=== PATIENT | male | born 1960 | race Caucasian/White ===

== ENCOUNTER → 2019-11-30 09:55 | Outpatient (BNVA) | payer OTHER, SELFPAY | PROVIDERS: Family Provider Family Medicine; PCP Family Medicine; Visit Provider Specialist | DX: M25.552 Pain in left hip (principal) | CPT/HCPCS: 73502 ==

== ENCOUNTER → 2020-01-08 09:27 | Outpatient (BNVA) | payer OTHER, SELFPAY | PROVIDERS: Family Provider Family Medicine; PCP Emergency Medicine Emergency Medical Services; Referring Provider Emergency Medicine Emergency Medical Services; Visit Provider Anesthesiology Pain Medicine | DX: M51.16 Intervertebral disc disorders with radiculopathy, lumbar region (principal); M47.816 Spondylosis without myelopathy or radiculopathy, lumbar region; M54.9 Dorsalgia, unspecified; M16.0 Bilateral primary osteoarthritis of hip; Z79.891 Long term (current) use of opiate analgesic | CPT/HCPCS: 99205; 99215 ==

== ENCOUNTER → 2020-01-19 14:26 | Outpatient (BNVA) | payer OTHER, SELFPAY | PROVIDERS: Family Provider Family Medicine; PCP Emergency Medicine Emergency Medical Services; Visit Provider Anesthesiology Pain Medicine | DX: M51.16 Intervertebral disc disorders with radiculopathy, lumbar region (principal); M47.816 Spondylosis without myelopathy or radiculopathy, lumbar region; M54.9 Dorsalgia, unspecified; M16.0 Bilateral primary osteoarthritis of hip | CPT/HCPCS: 64483; 64484; 99212; J1100; J3490 ==

== ENCOUNTER → 2020-02-04 13:03 | Outpatient (BNVA) | payer OTHER, SELFPAY | PROVIDERS: Family Provider Family Medicine; PCP Emergency Medicine Emergency Medical Services; Visit Provider Anesthesiology Pain Medicine | DX: M51.16 Intervertebral disc disorders with radiculopathy, lumbar region (principal); M47.816 Spondylosis without myelopathy or radiculopathy, lumbar region; M16.11 Unilateral primary osteoarthritis, right hip; M16.12 Unilateral primary osteoarthritis, left hip; M54.9 Dorsalgia, unspecified | CPT/HCPCS: 99214 ==

== ENCOUNTER → 2020-03-07 13:04 | Outpatient (BNVA) | payer OTHER, SELFPAY | PROVIDERS: Family Provider Family Medicine; PCP Emergency Medicine Emergency Medical Services; Visit Provider Anesthesiology Pain Medicine | DX: M47.816 Spondylosis without myelopathy or radiculopathy, lumbar region (principal); M51.16 Intervertebral disc disorders with radiculopathy, lumbar region; M16.11 Unilateral primary osteoarthritis, right hip; M54.9 Dorsalgia, unspecified; Z79.891 Long term (current) use of opiate analgesic | CPT/HCPCS: 64635; 64636; J1030 ==

== ENCOUNTER → 2020-03-23 10:26 | Outpatient (BNVA) | payer OTHER, SELFPAY | PROVIDERS: Family Provider Family Medicine; PCP Emergency Medicine Emergency Medical Services; Visit Provider Anesthesiology Pain Medicine | DX: M51.16 Intervertebral disc disorders with radiculopathy, lumbar region (principal); M47.816 Spondylosis without myelopathy or radiculopathy, lumbar region; M16.0 Bilateral primary osteoarthritis of hip; M54.9 Dorsalgia, unspecified; Z79.891 Long term (current) use of opiate analgesic | CPT/HCPCS: 99214 ==

== ENCOUNTER → 2020-04-13 14:05 | Outpatient (BNVA) | payer OTHER, SELFPAY | PROVIDERS: Family Provider Family Medicine; PCP Emergency Medicine Emergency Medical Services; Visit Provider Anesthesiology Pain Medicine | DX: M47.816 Spondylosis without myelopathy or radiculopathy, lumbar region (principal); M54.9 Dorsalgia, unspecified; Z79.891 Long term (current) use of opiate analgesic | CPT/HCPCS: 64635; 64636; J1030 ==

== ENCOUNTER → 2021-08-02 07:58 | Outpatient (BNVA) | payer OTHER, SELFPAY | PROVIDERS: Family Provider Family Medicine; PCP Emergency Medicine Emergency Medical Services; Visit Provider Surgery | DX: Z12.11 Encounter for screening for malignant neoplasm of colon (principal); Z86.010 Personal history of colon polyps | CPT/HCPCS: 99203 ==

== ENCOUNTER 2021-08-23 05:50 | Day surgery (SDC) | payer OTHER, SELFPAY ==
[2021-08-22 08:00] VITALS: BMI 33.9
[2021-08-23 06:10] VITALS: BP 145/107; PULSE 118; RESP 18; TEMP 35.7; O2SAT 97
[2021-08-23] MEDS: sodium chloride 0.9% 1,000 ML 30 ML IV (06:17)
--- NOTE | 2021-08-23 06:52 | W.PM.OPSUD ---
Surgery/Procedure H&P Update DATE OF PROCEDURE: August 23, 2021 DATE H&P PERFORMED: 08/02/21 CHANGES TO PREVIOUS DOCUMENTATION: none PLANNED PROCEDURE: Operation Date: 08/23/21 07:00 Proposed Procedures p Colonoscopy(Not Applicable) - Kiran Keller DO
--- NOTE | 2021-08-23 06:55 | ANES.PREANE2 ---
Pre-Anesthetic Assessment Height/Weight: Height 1.79 m Weight 108.862 kg Temp Pulse Resp BP Pulse Ox 96.2 F L 118 H 18 145/107 97 08/23/21 06:10 08/23/21 06:10 08/23/21 06:10 08/23/21 06:10 08/23/21 06:10 Preop Diagnosis: screening Operation Date: 08/23/21 07:00 Proposed Procedures p Colonoscopy(Not Applicable) - Kiran Keller DO Familial anesthetic complications: none Was Beta Kary taken within 24 hours: N/A Was Clonidine taken within 24 hours: N/A Last intake: Intake Last Liquid Date 08/23/21 Last Liquid Time 03:00 Last Solid Date 08/21/21 Social No alcohol and No tobacco previous alcohol abuse and smoking- quit 13 years ago Exam alert and oriented x 3 Airway Submandibular: within normal limits Cervical ROM: within normal limits Mallampati: Class II Dentition: other (missing mulitple) History/ROS No significant history except as noted Pulmonary None reported CV/HEM Hypertension None reported Hepatic None reported GI Gastroesophageal Reflux Disease Metabolic Diabetes Mellitus [facility] [place] None reported Neuropsych None reported Anesthetic Plan ASA status: 3 Anesthesia: Anesthesia Evaluation and MAC Risk of > 500 ml blood loss (7ml/kg in children): No Medications/Allergies Home Medications Medication Instructions Recorded Confirmed Last Taken Type lisinopril 40 mg tablet 40 mg PO DAILY 11/30/19 08/23/21 08/21/21 History metformin 500 mg tablet 1,000 mg PO BID 11/30/19 08/23/21 08/21/21 History naproxen 500 mg tablet 500 mg PO BID PRN 11/30/19 08/23/21 08/22/21 History aspirin 81 mg tablet,delayed 81 mg PO DAILY 01/08/20 08/23/21 08/21/21 History release insulin glargine 100 unit/mL (3 35 unit SUBCUT BID 08/22/21 08/23/21 08/21/21 History mL) subcutaneous pen (Lantus Solostar U-100 Insulin) ipratropium 20 mcg-albuterol 100 1 puff INHALATION DAILY PRN 08/22/21 08/23/21 Unknown History mcg/actuation mist for inhalation (Combivent Respimat) sildenafil 100 mg tablet 100 mg PO PRN PRN 08/22/21 08/23/21 08/21/21 History Allergies Allergy/AdvReac Type Severity Reaction Status Date / Time Penicillins Allergy rash/hives Verified 08/23/21 06:07 Current Medications Generic Name Dose Route Start Last Admin Trade Name Freq PRN Reason Stop Dose Admin Sodium Chloride 1,000 mls @ 30 mls/hr 08/23/21 06:00 08/23/21 06:17 Sodium Chloride 0.9% IV 08/24/21 05:59 30 mls/hr .Q24H OMAR Administration PFSH Anesthesia Medical History Anxiety High cholesterol Hypertension Opioid contract exists Primary osteoarthritis of left hip Primary osteoarthritis of right hip Type 2 diabetes mellitus Surgical History History of colonoscopy Family History Denies family history of Anesthesia complication Social History Smoking and tobacco status: former smoker (12 years ago) Alcohol intake: never History of recent travel: No Data Anesthesia Cardiac Studies: No Data to Display
[2021-08-23 07:17] VITALS: BP 174/84; PULSE 108; RESP 22; TEMP 36.1; O2SAT 93
--- NOTE | 2021-08-23 07:24 | ANE.PACU2 ---
Inpatient post-anesthesia follow up: Airway intact: Yes Vital signs: Temperature 97 F Pulse Rate 108 Respiratory Rate 22 Blood Pressure 174/84 Pulse Oximetry 93 Oxygen Delivery Me thod Nasal Cannula Oxygen Flow Rate Fraction of Inspir ed Oxygen Hydration adequate: Yes Nausea and vomiting: No Pain level: 1 Mental status: Baseline
[2021-08-23 07:40] VITALS: BP 108/84; PULSE 110; RESP 18; O2SAT 98
--- NOTE | 2021-08-23 08:03 | PC.NURSE ---
patient was taken to his truck to get his phone to call his ride. person did not answer. pt taken back to gi lab to wait for ride. message left for equipment driver to call to get directions to gi lab.
--- NOTE | 2021-08-23 10:56 | PC.NURSE ---
pt has cont. to wait on ride sitting in waiting room . went to check on pt and he was not in waiting room. pt left his keys at the nurses station. i had finally got a hold of his rolloff truck driver quin canales. states he would come get pt but it would be about 45 min. security notified.
--- NOTE | 2021-08-23 11:29 | PC.NURSE ---
pt electric pile driver operator here to get pt. his electric pile driver operator took the pt keys and both walked out.
== END 2021-08-23 11:29 | disposition home or self-care (01) ==
PROVIDERS: Family Provider Family Medicine; PCP Family Medicine; Visit Provider Surgery
PROC: 0DJD8ZZ Inspection of Lower Intestinal Tract, Via Natural or Artificial Opening Endoscopic (ICD-10-PCS; CPT 45378; principal; 2021-08-23 07:00)
DX: Z12.11 Encounter for screening for malignant neoplasm of colon (principal); Z79.82 Long term (current) use of aspirin; F41.9 Anxiety disorder, unspecified; I10 Essential (primary) hypertension; E11.9 Type 2 diabetes mellitus without complications; Z87.891 Personal history of nicotine dependence; Z86.010 Personal history of colon polyps; K21.9 Gastro-esophageal reflux disease without esophagitis; Z79.84 Long term (current) use of oral hypoglycemic drugs
CPT/HCPCS: 45378; J2704; J7030

== ENCOUNTER 2021-10-29 08:47 | Emergency (ER) | payer OTHER, SELFPAY ==
[2021-10-29 08:49] VITALS: BP 168/100; PULSE 91; RESP 16; TEMP 36.4; O2SAT 98
[2021-10-29 08:59] VITALS: BP 169/100; PULSE 90; RESP 16; TEMP 36.4; O2SAT 98
--- NOTE | 2021-10-29 09:00 | W.ED.EXTPRO ---
HPI - Extremity Problem General: Chief complaint: Extremity Injury, Lower Stated complaint: Left leg pain with tingling Time Seen by Provider: 10/29/21 08:55 History of Present Illness: 61-year-old male presents with chronic left leg pain and Sciatica . Patient reports no new injuries and no significant changes pain. Patient denies any problems with bowel or bladder, lower extremity weakness or any other neurologic complaints. Patient reports he had an injury in 1977. That 1 time he was seen in a painter decorator but has not seen in 2 years. Patient presents today because he just wants to know what he needs to do. Patient's been taken naproxen and Tylenol for the pain. Patient has not followed up in quite a while for his chronic pain. Patient has no fevers, chills or other systemic complaints. Associated symptoms: Deny fever(s) or rash Review of Systems Const: Denies: fever(s) or chills Eyes: Denies: change in vision ENMT: Denies: throat pain or ear or mastoid pain Resp: Denies: dyspnea or productive cough : Denies: flank pain or difficulty urinating Musc: Reports: back pain, extremity pain and other (Please see HPI) Skin/Breast: Denies: rash or erythema PFSH ED PFSH: Medical History Anxiety High cholesterol Hypertension Opioid contract exists Primary osteoarthritis of left hip Primary osteoarthritis of right hip Type 2 diabetes mellitus Surgical History History of colonoscopy Family History Denies family history of Anesthesia complication Social History Smoking and tobacco status: former smoker (12 years ago) Alcohol intake: never History of recent travel: No Physical Exam Const: COMMON NORMALS: no acute distress, patient oriented x3 and no limitations Neck/C-Spine: COMMON NORMALS: no JVD Resp: COMMON NORMALS: normal respiratory effort, No use of accessory muscles and clear to auscultation bilaterally AUSCULTATION: clear to auscultation bilaterally Cardio: COMMON NORMALS: no JVD and regular rate RATE: regular rate : COMMON NORMALS: Yes no CVA tenderness BLADDER/KIDNEY EXAM: Yes no CVA tenderness Back/Pelvis: COMMON NORMALS: no CVA tenderness, thoraco-lumbar ROM normal and straight leg raise negative bilaterally Extremity: COMMON NORMALS: normal to inspection, full ROM and capillary refill normal Neuro: COMMON NORMALS: patient oriented x3, CN's II-XII intact bilaterally and moves all extremities Psych: COMMON NORMALS: mental status grossly normal, Normal thought process present and cooperative THOUGHT PROCESS: Normal thought process present Skin: COMMON NORMALS: no rashes or lesions noted GENERAL SKIN EXAM: no rashes or lesions noted Course Vital Signs: Vital signs: Vital Signs Temperature 97.6 F 10/29/21 08:49 Pulse Rate 91 10/29/21 08:49 Respiratory Rate 16 10/29/21 08:49 Blood Pressure 168/100 10/29/21 08:49 Pulse Oximetry 98 10/29/21 08:49 Oxygen Delivery Me thod 10/29/21 08:49 MDM - Extremity (Nontraumatic) Medical Decision Making Patient with chronic low back pain and sciatica. Discussed with patient that he will need to follow-up with his primary care provider recommend he see rehabilitation construction specialist along with reestablish care with pain specialist. Patient will be given a Norflex shot here. I will recommend he uses topical lidocaine and Voltaren cream. Patient stable and discharged home Discharge Plan Discharge Patient Disposition: Home Clinical Impression: Low back pain of thoracolumbar region with sciatica Condition: Stable Prescriptions: No Action lisinopril 40 mg tablet 40 mg PO DAILY metformin 500 mg tablet 1,000 mg PO BID naproxen 500 mg tablet 500 mg PO BID PRN (Reason: Pain) aspirin 81 mg tablet,delayed release (DR/EC) 81 mg PO DAILY sildenafil 100 mg tablet 100 mg PO PRN PRN (Reason: Sexual Activity) insulin glargine [Lantus Solostar U-100 Insulin] 100 unit/mL (3 mL) insulin pen 35 unit SUBCUT BID Combivent Respimat 20-100 mcg/actuation mist 1 puff INHALATION DAILY PRN (Reason: ALLERGIES) Discharge Orders: Discharge ED (Routine); Ordered 10/29/21 Ordered By: Fady Mccall Referrals: Lissett Olivera MD [Primary Care Provider] - Discharge Diet: Advance as tolerated and Usual diet Discharge Activity: Resume usual activity Patient Instructions: Opioid Safety Activity Restrictions/Additional Instructions: Please use 4% topical lidocaine with menthol, cream gel or patch use as directed on package as needed for pain Diclofenac/Voltaren cream to low back, use as directed on package Warm moist heat for 20 minutes at a time 3-4 times daily Please follow-up with rehabilitation construction specialist and pain specialist of your choice Consider physical therapy and massage therapy. Please discuss these with your primary care provider Coding Level of Care Code ED Weight Trainer for Chg Fwd Exam Comprehensive
[2021-10-29 09:19] VITALS: PULSE 78
[2021-10-29 09:29] VITALS: BP 169/100; PULSE 90; RESP 16; TEMP 36.4; O2SAT 98
[2021-10-29] MEDS: orphenadrine 30 mg/mL Inj 2 mL 60 MG IM (09:32)
== END 2021-10-29 09:31 | disposition home or self-care (01) ==
PROVIDERS: Emergency Provider Student in an Organized Health Care Education/Training Program; PCP Family Medicine
DX: M54.42 Lumbago with sciatica, left side (principal)
CPT/HCPCS: 96372; 99284; J2360

== ENCOUNTER 2021-10-30 07:23 | Emergency (ER) | payer OTHER, SELFPAY ==
[2021-10-30 07:34] VITALS: BP 172/106; PULSE 86; RESP 21; TEMP 36.6; O2SAT 98; BMI 35.9
--- NOTE | 2021-10-30 08:22 | ED_ITS ---
HPI - Back Pain/Injury General: Chief Complaint: Back Pain/Injury Stated Complaint: Left leg pain traveling up spine Time Seen by Provider: 10/30/21 07:51 History of Present Illness: Patient is a 61-year-old male comes to the ED with chronic lower back pain with sciatica. Patient says he has been dealing with this for several years now. He was a patient of Dr. De La Cruz with pain management clinic approximately 2 years ago. He is a and [facility] has had trouble getting things set up to further manage his chronic sciatica. Today he endorses having lower back pain that radiates down into his left leg. Patient was seen here in the ED for same complaint yesterday and October 29 and he was given muscle relaxer shop and discharged home. Denies any bladder or bowel incontinence, pelvic anesthesia or any weakness to lower extremities. Associated symptoms: Deny abdominal pain, chills, dysuria, fatigue, fever(s), hematuria, nausea or vomiting Review of Systems Const: Denies: fever(s), chills or fatigue Eyes: Denies: change in vision or eye discomfort ENMT: Denies: throat pain, odynophagia, nasal discharge or nasal congestion Card: Denies: chest pain, palpitations, edema, swelling of feet/ankles, dyspnea on exertion or orthopnea Resp: Denies: dyspnea, productive cough or non-productive cough GI: Denies: abdominal pain, nausea, vomiting, diarrhea, constipation or samreen tochezia : Denies: flank pain, difficulty urinating, dysuria or hematuria Musc: Reports: back pain; Denies: neck pain or extremity swelling Skin/Breast: Denies: rash or new lesions Neuro: Denies: headache(s), numbness in extremities or weakness in extremities [facility] ED PFSH: Medical History Anxiety High cholesterol Hypertension Opioid contract exists Primary osteoarthritis of left hip Primary osteoarthritis of right hip Type 2 diabetes mellitus Surgical History History of colonoscopy Family History Denies family history of Anesthesia complication Social History Smoking and tobacco status: former smoker (12 years ago) Alcohol intake: never History of recent travel: No Physical Exam Const: COMMON NORMALS: no acute distress, patient oriented x3 and alert GENERAL APPEARANCE: cooperative HENMT: COMMON NORMALS: normocephalic HEAD & SCALP: normocephalic MOUTH: Normal oral and palatal mucosa present THROAT: posterior oropharynx normal and uvula midline Neck/C-Spine: COMMON NORMALS: supple GENERAL: Yes normal visual inspection Resp: COMMON NORMALS: normal respiratory effort, No retractions, No use of accessory muscles and clear to auscultation bilaterally AUSCULTATION: clear to auscultation bilaterally Cardio: COMMON NORMALS: regular rate, regular rhythm, S1 normal heart sound present, S2 normal heart sound present, No gallops present (Cardio), No clicks present (Cardio), No murmurs present (Cardio) and Peripheral pulses 2+ throughout RATE: regular rate RHYTHM: regular rhythm HEART SOUNDS: S1 normal heart sound present and S2 normal heart sound present PERIPHERAL PULSES: Peripheral pulses 2+ throughout GI: COMMON NORMALS: Normal to inspection, nondistended, normoactive bowel sounds present, Soft to palpation, non-tender and no masses PALPATION: Yes Soft to palpation : COMMON NORMALS: Yes no CVA tenderness BLADDER/KIDNEY EXAM: Yes no CVA tenderness Back/Pelvis: COMMON NORMALS: no CVA tenderness LUMBAR SPINE/LOWER BACK: Yes paraspinal muscle tenderness Lumbar paraspinal muscle tenderness: left Extremity: COMMON NORMALS: normal to inspection Neuro: COMMON NORMALS: patient oriented x3 SENSORIUM/ORIENTATION: Yes alert GAIT: Yes Normal gait present Skin: GENERAL SKIN EXAM: dry skin Course Vital Signs: Vital signs: Vital Signs Temperature 97.9 F 10/30/21 07:34 Pulse Rate 88 10/30/21 09:14 Respiratory Rate 14 10/30/21 09:14 Blood Pressure 175/78 10/30/21 09:14 Pulse Oximetry 98 10/30/21 09:14 Oxygen Delivery Me thod 10/30/21 07:34 MDM - Back Pain/Injury Medical Decision Making Patient is a 61-year-old male that comes to the ED with chronic lumbar back pain with pain rating down left leg. Patient did see pain management clinic 2 years ago for back pain but has not been there for a while and is currently trying to get the [facility] to set him back up with pain management. Denies any cauda equina symptoms. Vitals are stable. Patient appears nontoxic and in no acute distress. Rest of exam is benign. Patient was given a dose of Toradol, Solu- Medrol and Norflex here in the ED and his symptoms improved. Patient was diagnosed with chronic lumbar radiculopathy and was discharged home with a prescription for Celebrex, muscle relaxer and steroid. Patient was told to monitor blood sugars closely while taking prednisone. Return to ED precautions given. [facility] to [facility] with [facility]. Patient understood and agreed with plan. Discharge Plan Discharge Patient Disposition: Home Clinical Impression: Chronic lumbar radiculopathy Condition: Stable Prescriptions: New Celebrex 100 mg capsule 100 mg PO BID PRN (Reason: pain) Qty: 30 0RF prednisone 20 mg tablet 20 mg PO BID 5 Days Qty: 10 0RF methocarbamol 750 mg tablet 750 mg PO Q8H PRN (Reason: Back muscle spasms and pain) Qty: 30 0RF No Action lisinopril 40 mg tablet 40 mg PO DAILY metformin 500 mg tablet 1,000 mg PO BID naproxen 500 mg tablet 500 mg PO BID PRN (Reason: Pain) aspirin 81 mg tablet,delayed release (DR/EC) 81 mg PO DAILY sildenafil 100 mg tablet 100 mg PO PRN PRN (Reason: Sexual Activity) insulin glargine [Lantus Solostar U-100 Insulin] 100 unit/mL (3 mL) insulin pen 35 unit SUBCUT BID Combivent Respimat 20-100 mcg/actuation mist 1 puff INHALATION DAILY PRN (Reason: ALLERGIES) Discharge Orders: Discharge ED (Routine); Ordered 10/30/21 Ordered By: Alban Gonzalez Referrals: Lissett Olivera MD [Primary Care Provider] - Discharge Diet: Diabetic Discharge Activity: Increase activity as tolerated Patient Instructions: Lumbar Radiculopathy (ED) Activity Restrictions/Additional Instructions: Follow-up with medical provider as directed in the next 5 to 7 days for reevaluation. I am sending you home with a prescription for prednisone and you can start taking prednisone tomorrow, since you got a steroid shot today. Prednisone is a steroid and can increase your blood sugars so we will monitor blood sugars closely while taking medication. If blood sugars are getting too elevated and difficult to manage stop taking prednisone. Take medications as prescribed. Return to the ER or your medical provider if condition worsens. Please read and understand discharge instructions. Thank you for choosing [facility] for your healthcare needs today. Please realize this is an emergency room and that we are providing you with a medical screening exam and this may not be complete and all inclusive of all the testing and or work up that you may need to determine your ailment or severity of your illness. It is very important that you follow up as instructed or that you return to the Emergency Department should you have concerns or if your condition changes or worsens in any way. Coding Level of Care Code ED Cash Register Balancer for Sean Fwd Exam Comprehensive
[2021-10-30] MEDS: orphenadrine 30 mg/mL Inj 2 mL 60 MG IM (08:37)
[2021-10-30] MEDS: ketorolac 60 mg/2 mL INJ IM (08:37)
[2021-10-30 09:14] VITALS: BP 175/78; PULSE 88; RESP 14; O2SAT 98
== END 2021-10-30 09:15 | disposition home or self-care (01) ==
PROVIDERS: Emergency Provider Physician Assistant; PCP Family Medicine
DX: M54.16 Radiculopathy, lumbar region (principal); Z79.82 Long term (current) use of aspirin; Z79.4 Long term (current) use of insulin; I10 Essential (primary) hypertension; E11.9 Type 2 diabetes mellitus without complications; Z87.891 Personal history of nicotine dependence
CPT/HCPCS: 96372; 99284; J1885; J2360; J2930

== ENCOUNTER → 2021-11-02 08:59 | Outpatient (BNVA) | payer OTHER, SELFPAY | PROVIDERS: PCP Family Medicine; Visit Provider Anesthesiology Pain Medicine | DX: M47.816 Spondylosis without myelopathy or radiculopathy, lumbar region (principal); M51.16 Intervertebral disc disorders with radiculopathy, lumbar region; M16.0 Bilateral primary osteoarthritis of hip; M79.605 Pain in left leg; Z87.891 Personal history of nicotine dependence; Z79.899 Other long term (current) drug therapy | CPT/HCPCS: 99213; 99214 ==

== ENCOUNTER → 2021-11-21 13:34 | Outpatient (BNVA) | payer OTHER, SELFPAY | PROVIDERS: PCP Family Medicine; Visit Provider Anesthesiology Pain Medicine | DX: M54.16 Radiculopathy, lumbar region (principal); Z87.891 Personal history of nicotine dependence | CPT/HCPCS: 64483; 64484; J1100; J3490 ==

== ENCOUNTER 2021-12-05 10:15 | Emergency (ER) | payer OTHER, SELFPAY ==
[2021-12-05 10:55] VITALS: BP 152/101; PULSE 95; RESP 18; TEMP 36.5; O2SAT 97; BMI 34.4
--- NOTE | 2021-12-05 11:19 | W.ED.EXTPRO ---
HPI - Extremity Problem General: Chief complaint: Extremity Injury, Upper Stated complaint: left hip pain Time Seen by Provider: 12/05/21 11:01 History of Present Illness: Patient is a 61-year-old male comes to the ED with acute on chronic back pain. Patient sees pain management clinic and his last appointment was on November 21 and a transforaminal lumbar MICHAEL was performed. The past couple days he is having lower back pain that radiates down to his left leg. Patient says he has an appointment with pain management clinic today at 12:40pm. Associated symptoms: Deny chest pain, fever(s) or rash Review of Systems Const: Denies: fever(s), chills or fatigue Eyes: Denies: change in vision or eye discomfort ENMT: Denies: throat pain, odynophagia, nasal discharge or nasal congestion Card: Denies: chest pain, palpitations, edema, swelling of feet/ankles, dyspnea on exertion or orthopnea Resp: Denies: dyspnea, productive cough or non-productive cough GI: Denies: abdominal pain, nausea, vomiting, diarrhea, constipation or hematochezia : Denies: flank pain, difficulty urinating, dysuria or hematuria Musc: Reports: back pain; Denies: neck pain or extremity swelling Skin/Breast: Denies: rash or new lesions Neuro: Denies: headache(s), numbness in extremities or weakness in extremities PFSH ED PFSH: Medical History Anxiety High cholesterol Hypertension Opioid contract exists Primary osteoarthritis of left hip Primary osteoarthritis of right hip Type 2 diabetes mellitus Surgical History History of colonoscopy Family History Denies family history of Anesthesia complication Social History Smoking and tobacco status: former smoker Second hand smoke exposure: No Alcohol intake: never History of recent travel: No Physical Exam Const: COMMON NORMALS: no acute distress, patient oriented x3 and alert GENERAL APPEARANCE: cooperative and comfortable HENMT: COMMON NORMALS: normocephalic HEAD & SCALP: normocephalic MOUTH: Normal oral and palatal mucosa present THROAT: posterior oropharynx normal and uvula midline Neck/C-Spine: COMMON NORMALS: supple GENERAL: Yes normal visual inspection Resp: COMMON NORMALS: normal respiratory effort, No retractions, No use of accessory muscles and clear to auscultation bilaterally AUSCULTATION: clear to auscultation bilaterally Cardio: COMMON NORMALS: regular rate, regular rhythm, S1 normal heart sound present, S2 normal heart sound present, No gallops present (Cardio), No clicks present (Cardio), No murmurs present (Cardio) and Peripheral pulses 2+ throughout RATE: regular rate RHYTHM: regular rhythm HEART SOUNDS: S1 normal heart sound present and S2 normal heart sound present PERIPHERAL PULSES: Peripheral pulses 2+ throughout GI: COMMON NORMALS: Normal to inspection, nondistended, normoactive bowel sounds present, Soft to palpation, non-tender and no masses PALPATION: Yes Soft to palpation : COMMON NORMALS: Yes no CVA tenderness BLADDER/KIDNEY EXAM: Yes no CVA tenderness Back/Pelvis: COMMON NORMALS: no CVA tenderness Extremity: COMMON NORMALS: normal to inspection Neuro: COMMON NORMALS: patient oriented x3 SENSORIUM/ORIENTATION: Yes alert GAIT: Yes Normal gait present Skin: GENERAL SKIN EXAM: dry skin Course Vital Signs: Vital signs: Vital Signs Temperature 97.7 F 12/05/21 10:55 Pulse Rate 95 12/05/21 10:55 Respiratory Rate 18 12/05/21 10:55 Blood Pressure 152/101 12/05/21 10:55 Pulse Oximetry 97 12/05/21 10:55 Oxygen Delivery Me thod 12/05/21 10:55 MDM - Extremity (Nontraumatic) Medical Decision Making Patient is a 61-year-old male comes to the ED with chronic back pain. Patient sees pain management clinic and his last appointment was on November 21 and a transforaminal lumbar MICHAEL was performed. He was scheduled to have appointment with them today at 1240 but since he showed up here in the ED his appointment was canceled. Denies any new injury. This is patient's normal chronic back pain. Informed patient that it is better for him to go to his pain management appointment to deal with his chronic back pain then to come here to the emergency department. He was given a dose of Toradol and Norflex here in the ED and discharged home. Told to follow-up with pain management. Patient understood and agreed with plan. Discharge Plan Discharge Patient Disposition: Home Clinical Impression: Chronic bilateral low back pain Condition: Stable Prescriptions: No Action lisinopril 40 mg tablet 40 mg PO DAILY metformin 500 mg tablet 1,000 mg PO BID naproxen 500 mg tablet 500 mg PO BID PRN (Reason: Pain) aspirin 81 mg tablet,delayed release (DR/EC) 81 mg PO DAILY dexamethasone sodium phos (PF) 10 mg/mL solution 8 mg Infiltration ONCE Qty: 0.8 0RF methocarbamol 750 mg tablet 750 mg PO Q8H PRN (Reason: Back muscle spasms and pain) Qty: 90 0RF celecoxib [Celebrex] 100 mg capsule 100 mg PO BID PRN (Reason: pain) Qty: 60 0RF methylprednisolone acetate [Depo-Medrol] 40 mg/mL suspension 40 mg Infiltration ONCE Qty: 1 0RF sildenafil 100 mg tablet 100 mg PO PRN PRN (Reason: Sexual Activity) insulin glargine [Lantus Solostar U-100 Insulin] 100 unit/mL (3 mL) insulin pen 35 unit SUBCUT BID Combivent Respimat 20-100 mcg/actuation mist 1 puff INHALATION DAILY PRN (Reason: ALLERGIES) Discharge Orders: Discharge ED (Routine); Ordered 12/05/21 Ordered By: Alban Gonzalez Referrals: Lissett Olivera MD [Primary Care Provider] - Discharge Diet: Regular Discharge Activity: Increase activity as tolerated Patient Instructions: Pain Management Activity Restrictions/Additional Instructions: Follow-up with medical provider as directed. Continue taking all home medications as previously prescribed. Return to the ER or your medical provider if condition worsens. Please read and understand discharge instructions. Thank you for choosing [facility] for your healthcare needs today. Please realize this is an emergency room and that we are providing you with a medical screening exam and this may not be complete and all inclusive of all the testing and or work up that you may need to determine your ailment or severity of your illness. It is very important that you follow up as instructed or that you return to the Emergency Department should you have concerns or if your condition changes or worsens in any way. Coding Level of Care Code ED Real Estate Office Supervisor for Sean [place] Exam Comprehensive
[2021-12-05] MEDS: orphenadrine 30 mg/mL Inj 2 mL 60 MG IM (11:58)
[2021-12-05] MEDS: ketorolac 60 mg/2 mL INJ IM (11:58)
== END 2021-12-05 12:01 | disposition home or self-care (01) ==
PROVIDERS: Emergency Provider Physician Assistant; PCP Family Medicine
DX: G89.29 Other chronic pain (principal); M54.50 Low back pain, unspecified; Z79.82 Long term (current) use of aspirin; Z79.4 Long term (current) use of insulin; I10 Essential (primary) hypertension; E11.9 Type 2 diabetes mellitus without complications; Z87.891 Personal history of nicotine dependence
CPT/HCPCS: 96372; 99284; J1885; J2360

== ENCOUNTER 2021-12-25 10:52 | Outpatient (CLI) | payer OTHER, SELFPAY ==
--- NOTE | 2021-12-25 11:06 | MR_ITS ---
WS: [id number] MRI THORACIC SPINE WITHOUT CONTRAST TECHNIQUE: Sagittal T1, T2 and STIR imaging. Axial T2 imaging. Noncontrast imaging obtained. CLINICAL INFORMATION: ACUTE MID BACK PAIN RADIATING DOWN THE LEGS COMPARISON: None. FINDINGS: Mild thoracic kyphosis. No acute compression. No high-grade central canal narrowing. Mild chronic com pression with anterior wedging at T5. Cord signal is normal. A few tiny disc protrusions the mid thor acic spine at T6-T7 and T7-T8. Moderate facet arthropathy lower thoracic spine. Normal caliber thorac ic aorta. Normal caliber thoracic aorta. Adrenal glands appear normal. T6-T7: Shallow RIGHT pericentral protrusion. Spinal canal and foramen are patent. T7-T8: Shallow RIGHT pericentral protrusion. Slight effacement of ventral thecal sac. Mild RIGHT fora tawnya narrowing. MR/MR thoracic spin wo con* [id number] IMPRESSION: 1. Mild thoracic kyphosis. No acute compression. No high-grade central canal n arrowing. 2. Mild chronic compression with anterior wedging at T5. 3. Shallow disc protrusions at T6-T7 and T7-T8. 4. Moderate facet arthropathy lower thoracic spine.
--- NOTE | 2021-12-25 11:07 | MR_ITS ---
WS: [id number] MRI LUMBAR SPINE NONCONTRAST TECHNIQUE: Sagittal T1, T2 and STIR imaging. Axial T1 and T2 imaging. CLINICAL INFORMATION: ACUTE MID BACK PAIN RADIATING DOWN THE LEGS COMPARISON: None. FINDINGS: Mild lumbar curve. No acute compression. Disc bulging worse at L3-L4, L4-L5, and L5-S1. This is worse L4-L5. L1-L2: Normal. L2-L3: Shallow central disc protrusion. Mild central canal stenosis. Narrowing of the subarticular re cess bilaterally. Mild facet arthropathy. Mild LEFT foraminal narrowing. L3-L4: Mild disc bulging with mild central canal stenosis. Impingement on the traversing L4 nerve leonel ts bilaterally in the subarticular recess. Mild to moderate facet arthropathy. Mild LEFT greater than RIGHT foraminal narrowing. L4-L5: Central disc protrusion with severe central canal stenosis. Moderate facet arthropathy ligamen mally flavum hypertrophy. Impingement traversing L5 nerve roots bilaterally. RIGHT foraminal protrusion with moderate RIGHT foraminal narrowing. LEFT foramen is patent. L5-S1: Mild disc bulging with slight impingement on the LEFT S1 nerve root and subarticular recess. M oderate facet arthropathy. Small bilateral foraminal protrusions with moderate RIGHT and mild LEFT fo raminal narrowing. Visualized pelvic bony structures: Normal. Paravertebral soft tissues: Normal. MR/MR lumbar spine wo con* [id number] IMPRESSION: 1. Mild lumbar curve. No acute compression. 2. Severe central canal stenosis L4-L5 with impingement traversing L5 nerve ro ots bilaterally. 3. Mild central canal stenosis L2-L3 and L3-L4. 4. Disc bulging L5-S1 slightly impinges the traversing LEFT S1 nerve root. 5. Moderate foraminal narrowing worse at RIGHT L4-L5 with impingement on the e xiting RIGHT L4 nerve root. Moderate RIGHT L5-S1 foraminal narrowing. 6. Moderate facet arthropathy L3-L5.
== END 2021-12-25 10:53 | disposition home or self-care (01) ==
PROVIDERS: PCP Family Medicine; Visit Provider Emergency Medicine Emergency Medical Services
DX: M48.061 Spinal stenosis, lumbar region without neurogenic claudication (principal); M51.36 Other intervertebral disc degeneration, lumbar region; M47.816 Spondylosis without myelopathy or radiculopathy, lumbar region; M40.204 Unspecified kyphosis, thoracic region; M48.54XA Collapsed vertebra, not elsewhere classified, thoracic region, initial encounter for fracture; M51.24 Other intervertebral disc displacement, thoracic region; M47.814 Spondylosis without myelopathy or radiculopathy, thoracic region
CPT/HCPCS: 72146; 72148